=== PATIENT | female | born 1975 | race American Indian/Alaskan Native ===

== ENCOUNTER 2021-11-24 05:47 | Observation (INO) | payer BC ==
--- NOTE | 2021-11-24 08:24 | Emergency Department Report ---
HPI - General Chief Complaint: Chest Pain Time Seen by Provider: 11/24/21 08:06 - HPI HPI: Room 41 The patient is a 45-year-old female present with a chief complaint of chest pain and left-sided numbness. The patient states since yesterday she has had a constant substernal chest pain described as sharp in nature associated with some shortness of breath. Patient states yesterday she had numbness in her left upper extremity and left lower extremity that lasted 1 minute and then resolved. Patient states the numbness returned a second time and lasted approximately 1 minute as well. Patient currently has chest pain and states she's never had a s tress test or cardiac catheterization ED Past Medical Hx - Past Medical History Previous Medical History?: No - Surgical History Past Surgical History?: No Additional Surgical History: Hysterectomy - Family History Family history: no significant - Social History Smoking Status: Current Some Day Smoker (hookah) Substance Use Type: None (Denies illicit drug use), Alcohol (Occasional) ED Review of Systems ROS: Stated complaint: CHEST PAIN Other details as noted in HPI Constitutional: denies: diaphoresis Eyes: denies: eye pain ENT: denies: congestion Respiratory: shortness of breath Cardiovascular: chest pain Endocrine: no symptoms reported Gastrointestinal: denies: nausea, vomiting Genitourinary: denies: dysuria Musculoskeletal: denies: back pain Neurological: numbness. denies: headache Physical Exam - Physical Exam Vital Signs: Vital Signs 11/24/21 11/24/21 05:54 07:32 Temperature 98.4 F Pulse Rate 76 78 Respiratory 16 14 Rate Blood Pressure 139/88 Blood Pressure 139/88 134/74 [Right] O2 Sat by Pulse 100 98 Oximetry Physical Exam: GENERAL: The patient is well-developed well-nourished female lying on stretcher not appearing to be in acute distress. [] HEENT: Normocephalic. Atraumatic. Extraocular motions are intact. Patient has moist mucous membranes. NECK: Supple. Trachea midline CHEST/LUNGS: Clear to auscultation. There is no respiratory distress noted. HEART/CARDIOVASCULAR: Regular. There is no tachycardia. There is no gallop rub or murmur. ABDOMEN: Abdomen is soft, nontender. Patient has normal bowel sounds. There is no abdominal distention. SKIN: There is no rash. There is no edema. There is no diaphoresis. NEURO: The patient is awake, alert, and oriented. The patient is cooperative. The patient has no focal neurologic deficits. The patient has normal speech. Cranial nerves II through XII grossly intact. GCS 15. Patient able to hold either upper extremity at 45 degree angle for 10-second count without drift. Patient able to hold either lower extremity at 30 degree angle for 5-second count without drift. NIHSS=0 MUSCULOSKELETAL: There is no evidence of acute injury. ED Course Vital Signs 11/24/21 11/24/21 05:54 07:32 Temperature 98.4 F Pulse Rate 76 78 Respiratory 16 14 Rate Blood Pressure 139/88 Blood Pressure 139/88 134/74 [Right] O2 Sat by Pulse 100 98 Oximetry - Consultations Consultation #1: 11/24/21 11:49 Case discussed with wood borer Dr. Thurston ED Medical Decision Making - Lab Data Result diagrams: 11/24/21 08:54 11/24/21 08:54 Laboratory Tests 11/24/21 11/24/21 11/24/21 07:30 08:54 08:54 WBC 4.5 RBC 4.20 Hgb 12.6 Hct 37.1 MCV 88 MCH 30 MCHC 34 RDW 13.5 Plt Count 282 [place] % (Auto) 17.1 H Eos % (Auto) 0.5 [place] # (Auto) 0.7 Eos # (Auto) 0.0 Baso # (Auto) 0.0 Seg Neutrophils % 58.1 Seg Neutrophils # 2.5 Sodium 139 Potassium 3.9 Chloride 101.1 Carbon Dioxide 24 Anion Gap 18 BUN 11 Creatinine 0.5 L Estimated GFR > 60 BUN/Creatinine Ratio 22 Glucose 105 H Calcium 8.7 Total Creatine Kinase 143 H CK-MB (CK-2) 1.2 CK-MB (CK-2) Rel Index 0.8 Troponin T < 0.010 - EKG Data -: EKG Interpreted by Me EKG shows normal: sinus rhythm Rate: normal - EKG Data When compared to previous EKG there are: previous EKG unavailable Interpretation: nonspecific ST-T wave lou (Flattened T waves lead V2) - Radiology Data Radiology results: report reviewed (CT head, chest x-ray), image reviewed (CT head, chest x-ray) interpreted by me: Chest x-ray-no definite focal infiltrates, no pneumothorax [facility] [address] [place] [address] Cat Scan Report Signed Patient: GISEL TRAN MR#: [id number] 0 : 1975 Acct:[id number] Age/Sex: 45 / F ADM Date: 11/24/21 Loc: ED Attending Dr: Ordering Physician: NEIL DOWD MD Date of Service: 11/24/21 Procedure(s): CT head/brain wo con Accession Number(s): [id number] cc: NEIL DOWD MD CT HEAD WITHOUT CONTRAST INDICATION / CLINICAL INFORMATION: Intermittent left-sided numbness. TECHNIQUE: All CT scans at this location are performed using CT dose reduction for ALARA by means of automated exposure control. COMPARISON: None available. FINDINGS: HEMORRHAGE: None. EXTRA-AXIAL SPACES: Normal in size and morphology for the patient's age. VENTRICULAR SYSTEM: Normal in size and morphology for the patient's age. CEREBRAL PARENCHYMA: No significant abnormality. No acute territorial infarct. MIDLINE SHIFT / HERNIATION: None. CEREBELLUM / BRAINSTEM: No significant abnormality. ORBITS: Normal as visualized SOFT TISSUES: No significant abnormality. SKULL: No significant abnormality. PARANASAL SINUSES / MASTOID AIR CELLS: Normal as visualized ADDITIONAL FINDINGS: None. IMPRESSION: 1. No acute intracranial abnormality. Signer Name: Rui Grey DO Signed: 11/24/2021 8:48 AM Workstation Name: [id number] Transcribed By: NS Dictated By: RUI GREY DO Electronically Authenticated By: RUI GREY DO Signed Date/Time: 11/24/21847 DD/ 5 TD/TT: [address] [address] XRay Report Signed Patient: GISEL TRAN MR#: [id number] 0 : 1975 Acct:[id number] Age/Sex: 45 / F ADM Date: 11/24/21 Loc: ED Attending Dr: Ordering Physician: NEIL DOWD MD Date of Service: 11/24/21 Procedure(s): XR chest 1V ap Accession Number(s): [id number] cc: NEIL DOWD MD Fluoro Time In Minutes: CHEST 1 VIEW 11/24/2021 8:34 AM INDICATION / CLINICAL INFORMATION: chest pain. COMPARISON: None available. FINDINGS: SUPPORT DEVICES: None. HEART / MEDIASTINUM: No significant abnormality. LUNGS / PLEURA: No significant pulmonary or pleural abnormality. No pneumothorax. ADDITIONAL FINDINGS: No significant additional findings. IMPRESSION: 1. No acute findings. Signer Name: Rui Grey DO Signed: 11/24/2021 8:44 AM Workstation Name: [id number] Transcribed By: SANDRO Dictated By: RUI GREY DO Electronically Authenticated By: RUI GREY DO Signed Date/Time: 11/24/21843 DD/ 3 TD/TT: - Differential Diagnosis ACS, pericarditis, GERD, anxiety, TIA Critical care attestation.: If time is entered above; I have spent that time in minutes in the direct care of this critically ill patient, excluding procedure time. ED Disposition Clinical Impression: Chest pain, Transient neurologic deficit Disposition: ADMITTED INPATIENT Is pt being admited?: Yes Does the pt Need Aspirin: No Condition: Fair Instructions: Nonspecific Chest Pain, Adult Referrals: CRUZITO BOYCE MD [Primary Care Provider] - 3-5 Days Time of Disposition: 11:31 (Care transferred to hospitalist (Dr. Cunningham)) Heart Score - HEART Score History: Slightly suspicious EKG: Non-specific Age: 45-65 Risk factors: 1-2 risk factors Troponin: < normal limit HEART Score: 3 - EKG Read Time Time EKG Completed: 05:57 EKG Read Time: 05:57
--- NOTE | 2021-11-24 08:48 | XRay Report ---
CHEST 1 VIEW 11/24/2021 8:34 AM INDICATION / CLINICAL INFORMATION: chest pain. COMPARISON: None available. FINDINGS: SUPPORT DEVICES: None. HEART / MEDIASTINUM: No significant abnormality. LUNGS / PLEURA: No significant pulmonary or pleural abnormality. No pneumothorax. ADDITIONAL FINDINGS: No significant additional findings. IMPRESSION: 1. No acute findings. Signer Name: Rui Hercules DO Signed: 11/24/2021 8:44 AM Workstation Name: [id number]
--- NOTE | 2021-11-24 08:52 | Cat Scan Report ---
CT HEAD WITHOUT CONTRAST INDICATION / CLINICAL INFORMATION: Intermittent left-sided numbness. TECHNIQUE: All CT scans at this location are performed using CT dose reduction for ALARA by means of automated exposure control. COMPARISON: None available. FINDINGS: HEMORRHAGE: None. EXTRA-AXIAL SPACES: Normal in size and morphology for the patient's age. VENTRICULAR SYSTEM: Normal in size and morphology for the patient's age. CEREBRAL PARENCHYMA: No significant abnormality. No acute territorial infarct. MIDLINE SHIFT / HERNIATION: None. CEREBELLUM / BRAINSTEM: No significant abnormality. ORBITS: Normal as visualized SOFT TISSUES: No significant abnormality. SKULL: No significant abnormality. PARANASAL SINUSES / MASTOID AIR CELLS: Normal as visualized ADDITIONAL FINDINGS: None. IMPRESSION: 1. No acute intracranial abnormality. Signer Name: Rui Hercules DO Signed: 11/24/2021 8:48 AM Workstation Name: [id number]
[2021-11-24 09:55] LABS: Creatine Kinase MB 1.2 ng/mL (0.0-4.0)
[2021-11-24] MEDS ORDERED: fentaNYL 100 MCG/2 ML INJ IV ONE (09:55)
[2021-11-24] MEDS ORDERED: CLOPIDOGREL 300 MG TAB PO ONE (09:55)
[2021-11-24] MEDS ORDERED: NITROGLYCERIN 2% OINT 1 GM TP ONE (09:55)
[2021-11-24] MEDS ORDERED: ONDANSETRON 4 MG/2 ML INJ IV ONE (09:55)
[2021-11-24 09:57] LABS: Blood Urea Nitrogen 11 mg/dL (7-17); Calcium 8.7 mg/dL (8.4-10.2); Hemolysis Index 3
[2021-11-24 09:58] LABS: BUN/Creatinine Ratio 22
[2021-11-24 11:11] LABS: Basophils % (Auto) 0.7 % (0.0-1.8); Eosinophils % (Auto) 0.5 % (0.0-4.3); Hematocrit 38.2 % (30.3-42.9); Hemoglobin 12.5 gm/dl (10.1-14.3); Lymphocytes % (Auto) 23.6 % (13.4-35.0); Mean Corpuscular HGB Conc 33 % (30-34); Mean Corpuscular Volume 89 fl (79-97); Monocytes # (Auto) 0.7 K/mm3 (0.0-0.8); Monocytes % (Auto) 17.1 % (0.0-7.3); Platelet Count 283 K/mm3 (140-440); Red Cell Distribution Width 13.8 % (13.2-15.2)
[2021-11-24] MEDS ORDERED: ACETAMINOPHEN 325 MG TAB PO PRN ×2 (11:34→12:00)
--- NOTE | 2021-11-24 11:37 | History and Physical Report ---
History of Present Illness Chief complaint: My chest hurts History of present illness: 45 YO Female with Obesity, Nicotine Dependence, GERD presents to ED for evaluation. Patient reports "my chest hurts". Patient states that she has experienced pain in her chest over the past 1 day with intermittent symptoms over the same timeframe. Patient states that pain is 4/10, intermittent, substernal, crushing in nature, without exacerbating or alleviating factors. Patient transported to [facility] via private vehicle for further care and evaluation of the aforementioned symptoms. The patient was seen and evaluated in the e mergency department. All lab and imaging studies reviewed. Patient found to have clinical symptoms consistent with angina as well as left arm tingling. Patient admitted to medical floor due to increased risk of worsening symptoms and for medical stabilization. Patient initiated on ACS protocol. Cardiology team consulted in ED. Patient denies fever, chills, palpitation, adductive cough, skin rash, recent contact, known exposure to COVID-19. No prior admission for review. No medication listed at time of admission for reconciliation. Advanced care planning conducted in ED. Past History Past Medical History: other (See HPI) Past Surgical History: hysterectomy Social history: , smoking Family history: diabetes, hypertension Medications and Allergies Allergies Allergy/AdvReac Type Severity Reaction Status Date / Time No Known Allergies Allergy Unverified 11/24/21 06:03 Review of Systems Constitutional: no weight loss, no weight gain, no fever, no chills Ears, nose, mouth and throat: no ear pain, no ear discharge, no decreased hearing, no nose pain, no sinus pressure Cardiovascular: chest pain, decreased exercise tolerance, no orthopnea, no palpitations Respiratory: no cough, no excessive sputum, no hemoptysis, no shortness of breath Gastrointestinal: no abdominal pain, no nausea, no vomiting, no diarrhea, no constipation, no change in bowel habits Genitourinary Female: no pelvic pain, no flank pain, no dysuria, no urinary frequency, no urgency Rectal: no pain, no incontinence, no bleeding Musculoskeletal: no neck stiffness, no neck pain, no shooting arm pain, no low back pain, no shooting leg pain Integumentary: no rash, no pruritis, no redness, no sores Neurological: no transient paralysis, no weakness, no tingling, no syncope Psychiatric: no anxiety, no memory loss, no insomnia, no hypersomnia, no jennifer cidal ideation, no disorientation Endocrine: no cold intolerance, no heat intolerance, no polydipsia, no nocturia, no flushing Hematologic/Lymphatic: no easy bruising, no easy bleeding Allergic/Immunologic: no urticaria, no wheezing Exam - Constitutional Vitals: Temp Pulse Resp BP Pulse Ox 98.4 F 68 17 134/87 97 11/24/21 05:54 11/24/21 10:22 11/24/21 09:30 11/24/21 10:22 11/24/21 09:30 General appearance: Present: mild distress - EENT Eyes: Present: PERRL ENT: hearing intact, clear oral mucosa - Neck Neck: Present: supple, normal ROM - Respiratory Respiratory effort: normal Respiratory: bilateral: CTA - Cardiovascular Heart Sounds: Present: S1 & S2. Absent: rub, click - Extremities Extremities: pulses symmetrical, No edema Peripheral Pulses: within normal limits - Abdominal General gastrointestinal: Present: soft, non-tender, non-distended, normal bowel sounds Female genitourinary: Present: normal - Integumentary Integumentary: Present: clear, warm, dry - Musculoskeletal Musculoskeletal: gait normal, strength equal bilaterally - Psychiatric Psychiatric: appropriate mood/affect, intact judgment & insight - Neurologic Neurologic: CNII-XII intact, moves all extremities HEART Score - HEART Score EKG: Non-specific Age: 45-65 Risk factors: 1-2 risk factors Troponin: Troponin T < 0.010 ng/mL (0.00-0.029) 11/24/21 07:30 Troponin: < normal limit Results - Labs CBC & Chem 7: 11/24/21 08:54 11/24/21 08:54 Labs: Abnormal lab results 11/24/21 11/24/21 Range/Units 08:54 08:54 [place] % (Auto) 17.1 H (0.0-7.3) % Lymph # (Auto) 1.0 L (1.2-5.4) K/mm3 Creatinine 0.5 L (0.6-1.2) mg/dL Glucose 105 H (65-100) mg/dL Total Creatine Kinase 143 H (30-135) units/L Assessment and Plan - Patient Problems (1) Angina at rest Current Visit: Yes Status: Acute Plan to address problem: ACS protocol: Serial cardiac enzymes, EKG, telemetry monitoring, echocardiogram ordered and pending at time of admission, morphine, submental oxygen, nitro, aspirin, cardiology team consulted in ED. (2) Cervical radiculopathy Current Visit: Yes Status: Acute Plan to address problem: Supportive care, C-spine x-ray, (3) Obesity Current Visit: Yes Status: Acute Plan to address problem: Balanced diet, increase physical activity discharge. (4) DVT prophylaxis Current Visit: Yes Status: Acute Plan to address problem: SCDs bilateral lower extremities while in bed (5) Advance care planning Current Visit: Yes Status: Acute Plan to address problem: Disease education done, care plan discussed, diagnoses discussed, prognosis discussed, patient is full code. Patient knowledges understanding and agreement with care plan, +30 minutes. (6) Preventative health care Current Visit: Yes Status: Acute Plan to address problem: Patient counseled on risk factor reduction, weight control, balanced diet, inc rease physical activity discharge, outpatient follow-up with primary care physician for all age and risk factor appropriate screening test. Outpatient follow-up with environmental field services technician for all age and risk factor appropriate screening test. +30 minutes.
[2021-11-24 11:56] LABS: INR 0.96 (0.87-1.13)
[2021-11-24 11:57] LABS: Partial Thromboplastin Time 29.5 Sec. (24.2-36.6); Thrombin Time 15.4 Sec. (15.1-19.6)
[2021-11-24] MEDS ORDERED: ALBUTEROL 2.5 MG/3 ML NEBU IH PRN (12:00)
[2021-11-24] MEDS ORDERED: ONDANSETRON 4 MG/2 ML INJ IV PRN (12:00)
[2021-11-24] MEDS ORDERED: NITROGLYCERIN 0.4 MG TAB SUBL SL PRN (12:00)
[2021-11-24] MEDS ORDERED: ASPIRIN 81 MG TAB CHEW PO SCH (12:00)
[2021-11-24] MEDS ORDERED: HYDROmorphone 0.5 MG/0.5 ML INJ IV PRN (12:00)
[2021-11-24] MEDS ORDERED: oxyCODONE /ACETAMINOPHEN 5-325MG TAB PO PRN (12:00)
--- NOTE | 2021-11-24 14:45 | Electrocardiograph Report ---
[facility] Test Date: 2021-11-24 Test Time: 05:57:40 Pat Name: GISEL TRAN Department: Room: Gender: F Floor Covering Contractor: TR : 1975 Requested By: ED DOC Order Number: [id number] Reading MD: Derick Morris Measurements Intervals [place] Rate: 74 P: 60 [place]: 184 QRS: 26 QRSD: 63 T: 55 QT: 411 QTc: 456 Interpretive Statements Sinus rhythm Low voltage, precordial leads No previous ECG available for comparison Electronically Signed On 11-24-2021 14:44:50 EDT by Derick Morris
[2021-11-24 18:13] LABS: Basophils % (Manual) 0 % (0.0-1.8); Platelet Estimate Consistent w Auto; RBC Morphology Normal; Total Cells Counted 100
[2021-11-24] MEDS ORDERED: diphenhydrAMINE 50 MG/ML VIAL IV ONE (19:32)
[2021-11-25] MEDS ORDERED: diphenhydrAMINE 50 MG/ML VIAL IV ONE (01:00)
[2021-11-25 08:03] VITALS: BP 125/70
--- NOTE | 2021-11-25 11:25 | Consultation ---
History of Present Illness Requesting physician: MARY ELLIOTT Consult reason: chest pain History of present illness: 45-year-old female with family history significant for coronary artery disease, nicotine dependence, GERD was admitted with chest pain. Patient says that she has been having chest pain since yesterday morning, initially started in the center of the chest later on the right shoulder associated with some tingling and numbness. She never had this chest pain before but she occasionally has tingling and numbness in her left arm. She had associated shortness of breath during the episode. No orthopnea or PND or leg swelling. She exercises daily without any chest pain or shortness of breath. Past History Past Medical History: other (See HPI) Past Surgical History: hysterectomy Social history: , smoking Family history: CAD, diabetes, hypertension Medications and Allergies Allergies Allergy/AdvReac Type Severity Reaction Status Date / Time No Known Allergies Allergy Verified 11/25/21 10:07 Home Medications Medication Instructions Recorded Confirmed Last Taken Type Acetaminophen with Codeine 1 each PO QDAY 11/25/21 11/25/21 11/23/21 History [Acetaminophen-Cod #3 Tablet] Ibuprofen [Motrin] 800 mg PO QDAY PRN 11/25/21 11/25/21 11/23/21 History Active Meds: Active Medications Acetaminophen (Acetaminophen 325 Mg Tab) 650 mg PO Q4H PRN PRN Reason: Pain MILD(1-3)/Fever >100.5/MIXON Albuterol (Albuterol 2.5 Mg/3 Ml Nebu) 2.5 mg IH Q4HRT PRN PRN Reason: Shortness Of Breath Hydromorphone HCl (Hydromorphone 0.5 Mg/0.5 Ml Inj) 0.5 mg IV Q23H PRN PRN Reason: Pain , Severe (7-10) Nitroglycerin (Nitroglycerin 0.4 Mg Tab Subl) 0.4 mg SL Q5M PRN PRN Reason: Chest Pain Ondansetron HCl (Ondansetron 4 Mg/2 Ml Inj) 4 mg IV Q8H PRN PRN Reason: Nausea And Vomiting Oxycodone/Acetaminophen (Oxycodone /Acetaminophen 5-325mg Tab) 1 tab PO Q16H PRN PRN Reason: Pain, Moderate (4-6) Last Admin: 11/24/21 21:49 Dose: 1 tab Sodium Chloride (Sodium Chloride 0.9% 10 Ml Flush Syringe) 10 ml IV BID MIGUEL A Last Admin: 11/25/21 01:00 Dose: 10 ml Sodium Chloride (Sodium Chloride 0.9% 10 Ml Flush Syringe) 10 ml IV PRN PRN PRN Reason: LINE FLUSH Review of Systems Constitutional: no weight loss, no weight gain Ears, nose, mouth and throat: no epistaxis, no bleeding gums Cardiovascular: other (See HPI) Respiratory: no cough, no congestion, no pleurisy Gastrointestinal: no abdominal pain Musculoskeletal: no muscle weakness Integumentary: no rash Neurological: no head injury Psychiatric: no anxiety Endocrine: no cold intolerance, no heat intolerance Hematologic/Lymphatic: no easy bruising Physical Examination Vital Signs Temp Pulse Resp BP Pulse Ox 98.4 F 76 16 139/88 100 11/24/21 05:54 11/24/21 05:54 11/24/21 05:54 11/24/21 05:54 11/24/21 05:54 General appearance: no acute distress HEENT: Positive: PERRL Neck: Positive: neck supple Cardiac: Positive: Reg Rate and Rhythm, S1/S2. Negative: S3, Audible Murmur Lungs: Positive: clear to auscultation. Negative: No Wheeze, Rales, Rhonchi Neuro: Positive: Grossly Intact Abdomen: Positive: Soft, Active Bowel Sounds Skin: Negative: Rash Extremities: Absent: edema Results 11/24/21 08:54 11/24/21 08:54 Coagulation 11/24/21 Range/Units 08:54 PT 13.8 (12.2-14.9) Sec. INR 0.96 (0.87-1.13) APTT 29.5 (24.2-36.6) Sec. CBC 11/24/21 Range/Units 08:54 Hgb 12.5 (10.1-14.3) gm/dl Hct 38.2 (30.3-42.9) % Plt Count 283 (140-440) K/mm3 Lymph # (Auto) 1.0 L (1.2-5.4) K/mm3 EKG interpretations - Telemetry EKG Rhythm: Sinus Rhythm Assessment and Plan - Patient Problems (1) Chest pain Current Visit: Yes Status: Acute Plan to address problem: She does not have an acute TX based on the EKG and troponin levels. I recommended her to get stress test and an echocardiogram during the hospitalization which she declined. She wants to get it done as an outpatient. We will schedule an appointment to see us in the clinic.
--- NOTE | 2021-11-25 12:39 | Discharge Summary ---
Providers - Providers Date of Admission: 11/24/21 14:53 Date of discharge: 11/25/21 Attending physician: MARY ELLIOTT MD 11/24/21 Consult to Cardiac Rehabilitation [CONS] Routine Reason For Exam: Phase I 11/24/21 11:50 Consult to Physician [CONS] Urgent Comment: Consulting Provider: JOSE JHA Physician Instructions: Reason For Exam: Chest pain Primary care physician: CRUZITO BOYCE Hospitalization Reason for admission: Angina at rest Condition: Fair Pertinent studies: Reviewed. Procedures: None. Hospital course: The patient is a 45 YO Female with Obesity, Nicotine Dependence, GERD presents to ED for evaluation. Patient reports "my chest hurts". Patient states that she has experienced pain in her chest over the past 1 day with intermittent symptoms over the same timeframe. Patient states that pain is 4/10, interm ittent, substernal, crushing in nature, without exacerbating or alleviating factors. Patient transported to [facility] via private vehicle for further care and evaluation of the aforementioned symptoms. The patient was seen and evaluated in the emergency department. All lab and imaging studies reviewed. Patient found to have clinical symptoms consistent with angina as well as left arm tingling. Patient admitted to medical floor due to increased risk of worsening symptoms and for medical stabilization. Patient initiated on ACS protocol. Cardiology team consulted in ED. the patient on presentation to the ED was found to be hemodynamically stable and saturating 100% on room air. Patient's labs were relatively unremarkable. Patient's troponins were negative x3. D-dimer was found to be 135. Cardiology recommended the patient undergo echo and myocardial perfusion scan/stress test. The patient preferred to get it done as an outpatient procedure. Patient will follow-up with cardiology in outpatient setting. Patient is medically clear for discharge. Disposition: 01 HOME / SELF CARE / HOMELESS Final Discharge Diagnosis (Prints w/discharge instructions): Angina at rest, cervical radiculopathy, morbid obesity Time spent for discharge: 45 min Core Measure Documentation - Palliative Care Palliative Care/ Comfort Measures: Not Applicable - Core Measures Any of the following diagnoses?: none Exam - Constitutional Vitals: Temp Pulse Resp BP Pulse Ox 97.8 F 55 L 18 125/70 100 11/25/21 07:56 11/25/21 10:00 11/25/21 07:56 11/25/21 07:56 11/25/21 07:56 General appearance: Present: no acute distress, well-nourished, obese - EENT Eyes: Present: PERRL, EOM intact ENT: hearing intact, clear oral mucosa, dentition normal - Neck Neck: Present: supple, normal ROM - Respiratory Respiratory effort: normal Respiratory: bilateral: CTA - Cardiovascular Rhythm: regular Heart Sounds: Present: S1 & S2 - Extremities Extremities: no ischemia, pulses intact, pulses symmetrical, No edema, normal temperature, normal color, Full ROM Peripheral Pulses: within normal limits - Abdominal General gastrointestinal: Present: soft, non-tender, non-distended, normal bowel sounds Female genitourinary: Present: deferred - Rectal Rectal Exam: deferred - Integumentary Integumentary: Present: clear, warm, dry - Musculoskeletal Musculoskeletal: strength equal bilaterally - Psychiatric Psychiatric: appropriate mood/affect, intact judgment & insight, memory intact, cooperative - Neurologic Neurologic: CNII-XII intact, moves all extremities - Allied Health Allied health notes reviewed: nursing Plan Activity: no restrictions Diet: regular Additional Instructions: The patient is a 45 YO Female with Obesity, Nicotine Dependence, GERD presents to ED for evaluation. Patient reports "my chest hurts". Patient states that she has experienced pain in her chest over the past 1 day with intermittent symptoms over the same timeframe. Patient states that pain is 4/10, intermittent, substernal, crushing in nature, without exacerbating or alleviating factors. Patient transported to [facility] via private vehicle for further care and evaluation of the aforementioned symptoms. The patient was seen and evaluated in the emergency department. All lab and imaging studies reviewed. Patient found to have clinical symptoms consistent with angina as well as left arm tingling. Patient admitted to medical floor due to increased risk of worsening symptoms and for medical stabilization. Patient initiated on ACS protocol. Cardiology team consulted in ED. the patient on presentation to the ED was found to be hemodynamically stable and saturating 100% on room air. Patient's labs were relatively unremarkable. Patient's troponins were negative x3. D-dimer was found to be 135. Cardiology recommended the patient undergo echo and myocardial perfusion scan/stress test. The patient preferred to get it done as an outpatient procedure. Patient will follow-up with cardiology in outpatient setting. Patient is medically clear for discharge. Care Plan Goals: Patient is medically clear for discharge. Assessment: The patient is a 45 YO Female with Obesity, Nicotine Dependence, GERD presents to ED for evaluation. Patient reports "my chest hurts". Patient states that she has experienced pain in her chest over the past 1 day with intermittent symptoms over the same timeframe. Patient states that pain is 4/10, intermittent, substernal, crushing in nature, without exacerbating or alleviating factors. Patient transported to [facility] via private vehicle for further care and evaluation of the aforementioned symptoms. The patient was seen and evaluated in the emergency department. All lab and imaging studies reviewed. Patient found to have clinical symptoms consistent with angina as well as left arm tingling. Patient admitted to medical floor due to increased risk of worsening symptoms and for medical stabilization. Patient initiated on ACS protocol. Cardiology team consulted in ED. the patient on presentation to the ED was found to be hemodynamically stable and saturating 100% on room air. Patient's labs were relatively unremarkable. Patient's troponins were negative x3. D-dimer was found to be 135. Cardiology recommended the patient undergo echo and myocardial perfusion scan/stress test. The patient preferred to get it done as an outpatient procedure. Patient will follow-up with cardiology in outpatient setting. Patient is medically clear for discharge. Follow up with: CRUZITO BOYCE MD [Primary Care Provider] - 3-5 Days Forms: Work/School Release Form
--- NOTE | 2021-11-25 16:48 | Electrocardiograph Report ---
[facility] Test Date: 2021-11-25 Test Time: 07:27:41 Pat Name: GISEL TRAN Department: Room: A465 1 Gender: F Mechanical Specialist: THIERNO : 1975 Requested By: STEVE DENISE Order Number: [id number] Reading MD: Kindra Squires Measurements Intervals Damon Rate: 59 P: -21 OK: 172 QRS: 20 QRSD: 71 T: 56 QT: 433 QTc: 429 Interpretive Statements Sinus bradycardia Low voltage, precordial leads ST elev, probable normal early repol pattern Compared to ECG 11/24/2021 05:57:40 ST (T wave) deviation now present Sinus rhythm no longer present Electronically Signed On 11-25-2021 16:48:24 EDT by Kindra Squires
--- NOTE | 2021-11-25 17:04 | Electrocardiograph Report ---
[facility] Test Date: 2021-11-25 Test Time: 11:12:23 Pat Name: GISEL TRAN Department: Room: A465 1 Gender: F Transitional Kindergarten Teacher: THIERNO : 1975 Requested By: STEVE DENISE Order Number: [id number] Reading MD: Kindra Squires Measurements Intervals Wilson Rate: 54 P: -14 CO: 168 QRS: 23 QRSD: 75 T: 53 QT: 470 QTc: 446 Interpretive Statements Sinus bradycardia Low voltage, precordial leads ST elev, probable normal early repol pattern Compared to ECG 11/25/2021 07:27:41 No significant changes Electronically Signed On 11-25-2021 17:04:25 EDT by Kindra Squires
== END 2021-11-25 13:54 | disposition home or self-care (01) ==
LOC: ED 05:47 → 4A 14:53 → INTOOBSV 14:53
PROVIDERS: ADMIT Internal Medicine; ATTEND Student in an Organized Health Care Education/Training Program
DX: I20.9 Angina pectoris, unspecified (principal); R07.89 Other chest pain; R29.818 Other symptoms and signs involving the nervous system; M54.12 Radiculopathy, cervical region; E66.9 Obesity, unspecified; K21.9 Gastro-esophageal reflux disease without esophagitis; F17.200 Nicotine dependence, unspecified, uncomplicated; Z90.710 Acquired absence of both cervix and uterus; Z79.899 Other long term (current) drug therapy
CPT/HCPCS: 36415; 70450; 71045; 80048; 82550; 82553; 84484; 85007; 85025; 85379; 85610; 85670; 85730; 93005; 94640; 94760; 96374; 96375; 99285; G0378; J1200; J2405; J3010